=== PATIENT | male | born 1955 | race Caucasian/White ===

== ENCOUNTER 2018-04-08 20:13 | Emergency (ER) | payer OTHER ==
[~2018-04-08] VITALS: Ht 172.7 cm; Wt 78.0 kg
[~2018-04-08 20:13] MED LIST: LOVASTATIN40 MG PO
[2018-04-08] MEDS ORDERED: CEFTRIAXONE SOD 1 GM VIAL IV ONE (21:45)
[2018-04-08 22:09] VITALS: BP 112/61
== END 2018-04-08 22:18 | disposition home or self-care (01) ==
LOC: FSED 20:13
DX: J01.00 Acute maxillary sinusitis, unspecified (principal)
CPT/HCPCS: 80053; 82553; 84484; 85025; 93005; 99283; J0696

== ENCOUNTER 2019-01-31 06:55 | Observation (INO) | payer OTHER ==
[~2019-01-31] VITALS: Ht 172.7 cm; Wt 73.5 kg
[2019-01-31] MEDS ORDERED: SODIUM CHLORIDE 0.9% 1000ML 1,000 ML ONE (07:26)
[2019-01-31] MEDS ORDERED: DIATRIZOATE MEGL/DIATRIZOA SOD 30 ML BTL PO ONE (07:27)
[2019-01-31] MEDS ORDERED: SODIUM CHLORIDE 0.9% 1000ML 1,000 ML IV ONE (07:30)
[2019-01-31] MEDS ORDERED: ONDANSETRON HCL INJ 2MG/ML 2ML 2 MG/ML VIAL IV ONE (08:00)
[2019-01-31 08:03] LABS: BILIRUBIN,URINE NEGATIVE (NEGATIVE); KETONES,URINE TRACE (NEGATIVE); LEUKOCYTE ESTERASE ,URINE NEGATIVE (NEGATIVE); NITRITE,URINE NEGATIVE (NEGATIVE); URINE UROBILINOGEN 0.2 mg/dL (0.2 - 1)
[2019-01-31 08:06] LABS: CLARITY,URINE CLEAR (CLEAR); COLOR,URINE YELLOW (YELLOW); PROTEIN,URINE DIPSTICK 3+ (NEGATIVE)
[2019-01-31 08:09] LABS: BASOPHILS % 0.1 % (0.0-1.0); HEMATOCRIT 50.5 % (38.2-49.6); HEMOGLOBIN 17.6 g/dL (14.0-18.0); LYMPHOCYTES # (AUTO) 1.3 (1.0-3.2); LYMPHOCYTES % 5.9 % (18.0-39.1); MEAN CORPUSCULAR HEMOGLOBIN 32.2 pg (28-32); MEAN CORPUSCULAR HGB CONC 34.9 g/dL (31-35); MEAN CORPUSCULAR VOLUME 92.3 fL (81-99); MONOCYTES # (AUTO) 1.5 (0.2-0.8); MONOCYTES % 6.8 % (4.4-11.3); NEUTROPHILS # (AUTO) 19.2 (2.1-6.9); NEUTROPHILS % 86.6 % (38.7-80.0); PLATELET COUNT 352 x10e3/uL (140-360); RED BLOOD COUNT 5.47 x10e6/uL (4.3-5.7); RED CELL DISTRIBUTION WIDTH 13.2 % (11.7-14.4)
[2019-01-31 08:14] LABS: INR 0.9; PROTHROMBIN TIME 12.6 seconds (11.9-14.5)
[2019-01-31 08:15] LABS: PARTIAL THROMBOPLASTIN TIME 30.4 seconds (23.8-35.5)
[2019-01-31 08:22] LABS: ALANINE AMINOTRANSFERASE 13 IU/L (0-55); ALBUMIN 4.7 g/dL (3.5-5.0); ALBUMIN/GLOBULIN RATIO 1.1 (0.8-2.0); ALKALINE PHOSPHATASE 71 IU/L (40-150); ANION GAP 15.7 mmol/L (8-16); BLOOD UREA NITROGEN 13 mg/dL (7-26); BUN/CREATININE RATIO 13 (6-25); CALCIUM 10.3 mg/dL (8.4-10.2); CARBON DIOXIDE 30 mmol/L (22-29); CHLORIDE 95 mmol/L (98-107); CREATINE KINASE 142 IU/L (30-200); CREATININE, SERUM 0.99 mg/dL (0.72-1.25); EST GLOMERULAR FILTRATION RATE > 60 ML/MIN (60-); GLUCOSE 163 mg/dL (74-118); POTASSIUM 3.7 mmol/L (3.5-5.1); SODIUM 137 mmol/L (136-145)
[2019-01-31 08:23] LABS: AMYLASE 90 U/L (25-125); LIPASE 29 U/L (8-78)
[2019-01-31 08:36] LABS: BACTERIA,URINE RARE /HPF; EPITHELIAL CELLS,URINE FEW /LPF
--- NOTE | 2019-01-31 09:31 | Diagnostic Imaging Report ---
EXAMINATION: CT of the abdomen and pelvis with contrast. TECHNIQUE: Spiral CT images of the abdomen and pelvis were performed from the lung bases to the lesser trochanters after the intravenous administration of 100 cc Isovue-370 and the oral administration of Gastrografin. Coronal and sagittal reformatted images were obtained. COMPARISON: None. CLINICAL HISTORY:Abdominal pain, vomiting DISCUSSION: ABDOMEN/PELVIS: LOWER THORAX:Unremarkable. HEPATOBILIARY: No focal hepatic lesions. No intra-or extrahepatic biliary ductal dilation. The gallbladder is normal. SPLEEN: No splenomegaly. PANCREAS: No focal masses or ductal dilatation. ADRENALS: No adrenal nodules. KIDNEYS/URETERS: No hydronephrosis, stones, or solid mass lesions. PELVIC ORGANS/BLADDER: Urinary bladder is unremarkable. The prostate is enlarged, measuring 5.3 cm transversely, with mass effect on the bladder base. Coarse central calcifications. PERITONEUM/RETROPERITONEUM: No free air or fluid. LYMPH NODES: No pelvic sidewall, retroperitoneal, or mesenteric lymphadenopathy. VESSELS: Abdominal aorta, major branch vessels, and iliac arterial systems are patent with mild atherosclerotic calcification. No aneurysmal dilatation area hepatic arterial anatomy appears conventional. Single right renal artery and 2 left renal arteries. Portal vein, splenic vein, and central superior mesenteric vein are patent. GI TRACT: The large bowel shows no distention or wall thickening. There are a few diverticula scattered along the course of the descending and sigmoid colon, without evidence of diverticulitis. The appendix is normal. There is no small bowel dilatation to suggest obstruction. Small duodenal diverticulum incidentally noted. BONES AND SOFT TISSUE: No osseous destructive lesions. Degenerative disc changes and facet arthropathy of the lower lumbar spine. No focal soft tissue abnormalities. IMPRESSION: No acute intra-abdominal or pelvic CT abnormalities. Large bowel diverticulosis without findings of diverticulitis. Mild atherosclerotic vascular disease. Prostatomegaly. Signed by: Dr. Guillermo Pino M.D. on 01/31/2019 9:27 AM
[2019-01-31] MEDS ORDERED: SODIUM CHLORIDE 0.9% 1000ML 1,000 ML IV SCH (10:42)
[2019-01-31] MEDS ORDERED: PROMETHAZINE HCL (IM) 25 MG/ML VIAL IV PRN (10:45)
--- OUTSIDE RECORDS SUMMARY | 2019-01-31 11:06 | XMS REPORT ---
Author Author [facility] Address Unknown Phone Unavailable Care Team Providers Care Gymnastic Coach Name Role Phone Ced PONCE Unavailable Unavailable Problems This patient has no known problems. Allergies, Adverse Reactions, Alerts This patient has no known allergies or adverse reactions. Medications This patient has no known medications. Results Test Description Test Time Test Comments Text Results Atomic Results Result Comments CT ABDOMEN/PELVIS W 2019-01-31 09:16:00 [facility] [address] [id number] Patient Name: CHELE AVILES III MR #: [id number] : 1955 Age/Sex: 63/M Req #: [id number] Adm Physician: Ordered by: JEANCARLOS ZAIDI MD Report #: [id number] Location: ER Room/Bed: Procedure: [id number] CT/CT ABDOMEN/PELVIS W Exam Date: 01/31/19 Exam Time: 0850 REPORT STATUS: Signed EXAMINATION: CT of the abdomen and pelvis with contrast. TECHNIQUE: Spiral CT images of the abdomen and pelvis were performed from the lung bases to the lesser trochanters after the intravenous administration of 100 cc Isovue-370 and the oral administration of Gastrografin. Coronal and sagittal reformatted images were obtained. COMPARISON: None. CLINICAL HISTORY:Abdominal pain, vomiting DISCUSSION: ABDOMEN/PELVIS: LOWER THORAX:Unremarkable. HEPATOBILIARY: No focal hepatic lesions. No intra-or extrahepatic biliary ductal dilation. The gallbladder is normal. SPLEEN: No splenomegaly. PANCREAS: No focal masses or ductal dilatation. ADRENALS: No adrenal nodules. KIDNEYS/URETERS: No hydronephrosis, stones, or solid mass lesions. PELVIC ORGANS/BLADDER: Urinary bladder is unremarkable. The prostate is enlarged, measuring 5.3 cm transversely, with mass effect on the bladder base. Coarse central calcifications. PERITONEUM/RETROPERITONEUM: No free air or fluid. LYMPH NODES: No pelvic sidewall, retroperitoneal, or mesenteric lymphadenopathy. VESSELS: Abdominal aorta, major branch vessels, and iliac arterial systems are patent with mild atherosclerotic calcification. No aneurysmal dilatation area hepatic arterial anatomy appears conventional. Single right renal artery and 2 left renal arteries. Portal vein, splenic vein, and central superior mesenteric vein are patent. GI TRACT: The large bowel shows no distention or wall thickening. There are a few diverticula scattered along the course of the descending and sigmoid colon, without evidence of diverticulitis. The appendix is normal. There is no small bowel dilatation to suggest obstruction. Small duodenal diverticulum incidentally noted. BONES AND SOFT TISSUE: No osseous destructive lesions. Degenerative disc changes and facet arthropathy of the lower lumbar spine. No focal soft tissue abnormalities. IMPRESSION: No acute intra- abdominal or pelvic CT abnormalities. Large bowel diverticulosis without findings of diverticulitis. Mild atherosclerotic vascular disease. Prostatomegaly. Signed by: Dr. Molly Baron M.D. on 01/31/2019 9:27 AM Dictated By: MOLLY BARON MD 6 Transcribed By: TRISTAN on 01/31/19926 COPY TO: JEANCARLOS ZAIDI MD
[2019-01-31 12:16] VITALS: BP 186/100
--- NOTE | 2019-01-31 12:30 | NUR ---
pt arrived to unit resp even and unlabored at this time no distress noted pt alert and able to make needs known, no nausea at this time, pt orient to room and call light, bed in lowest portion, bed rails up x2, pt instructed to use call light.
--- NOTE | 2019-01-31 14:05 | NUR ---
Visit made by the Spiritual Care Department Pastoral Visitor, Kaelyn Prajapati. PV provided pastoral presence, prayer, hospitality, and supportive listening. Pastoral Visitor informed pt/family of the scope of [employer] and availability. GREGORY NEGRON [employer] Spiritual Care Department O: [phone] Pager: [phone] ([phone] number calling from)
[2019-01-31] MEDS: ONDANSETRON HCL INJ 2MG/ML 2ML 2 MG/ML VIAL IV PRN ×2 (15:59→21:23)
[2019-01-31 16:02] VITALS: BP 186/96
[2019-01-31] MEDS ORDERED: IOPAMIDOL 370 MG/ML 200 ML INFUS..BTL INJ ONE (16:24)
[2019-01-31] MEDS ORDERED: SODIUM CHLORIDE 0.9% 50ML 50 ML ONE (16:24)
[2019-01-31] MEDS ORDERED: CLONIDINE HCL 0.1 MG TAB PO ONE (19:00)
--- NOTE | 2019-01-31 19:40 | NUR ---
report given to oncoming nurse for continued care
[2019-01-31 20:00] VITALS: BP 149/101
[2019-01-31 21:00] VITALS: BP 145/100
[2019-02-01] VITALS (7 sets, daily range): BP systolic 105–176; BP diastolic 74–103
[2019-02-01] MEDS: ZOLPIDEM TARTRATE 10 MG TAB PO PRN ×2 (02:47→23:39)
[2019-02-01] MEDS: CLONIDINE HCL 0.1 MG TAB PO PRN ×3 (05:00→23:39)
[2019-02-01] MEDS ORDERED: SODIUM CHLORIDE 0.9% 1000ML 1,000 ML ONE (05:44)
[2019-02-01 05:50] LABS: BASOPHILS % 0.1 % (0.0-1.0); EOSINOPHILS # (AUTO) 0.1 (0.0-0.4); EOSINOPHILS % 0.2 % (0.0-6.0); HEMATOCRIT 48.5 % (38.2-49.6); HEMOGLOBIN 16.6 g/dL (14.0-18.0); LYMPHOCYTES # (AUTO) 2.2 (1.0-3.2); MEAN CORPUSCULAR HEMOGLOBIN 31.9 pg (28-32); MEAN CORPUSCULAR HGB CONC 34.2 g/dL (31-35); MEAN CORPUSCULAR VOLUME 93.1 fL (81-99); MONOCYTES # (AUTO) 1.6 (0.2-0.8); MONOCYTES % 7.9 % (4.4-11.3); NEUTROPHILS # (AUTO) 16.1 (2.1-6.9); NEUTROPHILS % 80.3 % (38.7-80.0); PLATELET COUNT 326 x10e3/uL (140-360); RED BLOOD COUNT 5.21 x10e6/uL (4.3-5.7); RED CELL DISTRIBUTION WIDTH 13.1 % (11.7-14.4)
[2019-02-01 06:10] LABS: ALANINE AMINOTRANSFERASE 14 IU/L (0-55); ALBUMIN 4.1 g/dL (3.5-5.0); ALBUMIN/GLOBULIN RATIO 1.1 (0.8-2.0); ALKALINE PHOSPHATASE 71 IU/L (40-150); ANION GAP 14.9 mmol/L (8-16); BLOOD UREA NITROGEN 15 mg/dL (7-26); BUN/CREATININE RATIO 17 (6-25); CALCIUM 9.7 mg/dL (8.4-10.2); CARBON DIOXIDE 28 mmol/L (22-29); CHLORIDE 97 mmol/L (98-107); CREATININE, SERUM 0.89 mg/dL (0.72-1.25); EST GLOMERULAR FILTRATION RATE > 60 ML/MIN (60-); GLUCOSE 126 mg/dL (74-118); MAGNESIUM 2.3 MG/DL (1.3-2.1); POTASSIUM 3.9 mmol/L (3.5-5.1); SODIUM 136 mmol/L (136-145)
[2019-02-01] MEDS: SODIUM CHLORIDE 0.9% 1000ML 1,000 ML IV SCH ×2 (06:50→16:57)
--- NOTE | 2019-02-01 07:19 | NUR ---
patient endorsed to next shift for continuity of care
--- NOTE | 2019-02-01 19:30 | NUR ---
Received patient from day nurse, patient stable, safety and fall precautions maintained as per hospital protocol.
[2019-02-01] MEDS: ONDANSETRON HCL INJ 2MG/ML 2ML 2 MG/ML VIAL IV PRN (23:39)
[2019-02-02] VITALS: BP 170/94
[2019-02-02] MEDS: SODIUM CHLORIDE 0.9% 1000ML 1,000 ML IV SCH (02:45)
[2019-02-02 04:20] VITALS: BP 168/78
[2019-02-02 05:56] LABS: BASOPHILS % 0.2 % (0.0-1.0); EOSINOPHILS # (AUTO) 0.1 (0.0-0.4); EOSINOPHILS % 0.4 % (0.0-6.0); HEMATOCRIT 45.9 % (38.2-49.6); HEMOGLOBIN 15.6 g/dL (14.0-18.0); LYMPHOCYTES # (AUTO) 2.5 (1.0-3.2); LYMPHOCYTES % 17.2 % (18.0-39.1); MEAN CORPUSCULAR HEMOGLOBIN 31.7 pg (28-32); MEAN CORPUSCULAR VOLUME 93.3 fL (81-99); MONOCYTES # (AUTO) 1.4 (0.2-0.8); MONOCYTES % 9.3 % (4.4-11.3); NEUTROPHILS # (AUTO) 10.7 (2.1-6.9); NEUTROPHILS % 72.6 % (38.7-80.0); PLATELET COUNT 267 x10e3/uL (140-360); RED BLOOD COUNT 4.92 x10e6/uL (4.3-5.7); RED CELL DISTRIBUTION WIDTH 12.8 % (11.7-14.4)
--- NOTE | 2019-02-02 06:01 | NUR ---
Received patient from day nurse, patient stable, safety and fall precautions maintained as per hospital protocol.
--- NOTE | 2019-02-02 07:06 | NUR ---
patient endorsed to next shift for continuity of care.
[2019-02-02 07:52] VITALS: BP 154/81
[2019-02-02 10:08] VITALS: BP 154/81
[2019-02-02 11:38] VITALS: BP 153/85
[2019-02-02] MEDS ORDERED: ZOFRAN4 MG PO (12:56)
--- NOTE | 2019-02-03 06:11 | Discharge Summary ---
DISCHARGE DIAGNOSES: 1. Gastroenteritis. 2. Leukocytosis. 3. Hypertension. 4. Hyperlipidemia. 5. Dehydration. HISTORY OF PRESENT ILLNESS AND HOSPITAL COURSE: See hospital chart for full details. The patient is a gentleman, who presented with a 2-day history of nausea, vomiting. No diarrhea. No fever where he was very intractable. He was unable to keep p.o. intake down. When he came in, he had evidence of dehydration on his laboratory data. He was given IV fluids, antiemetics as well as p.r.n. blood pressure medicines for his elevated blood pressure, which he does not have a history of. Over the next day and a half, the patient had significant improvement. His dehydration labs were back to normal. His white count was trending downward from 22,000 to 14,000. He was able to ambulate and eat well with no further nausea, vomiting. Blood pressure improved where his blood pressure on discharge was 153/85. He felt great, he wanted to go home. Abdominal CT scan was unremarkable except for enlarged prostate and some diverticulosis, but no diverticulitis. The patient was instructed to follow up with me in 1 to 2 weeks. He was discharged home with some p.r.n. Chinyere. MD CURT Choudhury/MARQUEZ /[id number]
== END 2019-02-02 13:37 | disposition home or self-care (01) ==
LOC: ER 06:55 → ERHOLD 11:02 → IMCU 11:17
PROVIDERS: ADMIT Internal Medicine; ATTEND Internal Medicine
DX: E86.0 Dehydration (principal); K52.9 Noninfective gastroenteritis and colitis, unspecified; D72.829 Elevated white blood cell count, unspecified; I10 Essential (primary) hypertension; E78.5 Hyperlipidemia, unspecified; E78.00 Pure hypercholesterolemia, unspecified
CPT/HCPCS: 36415 ×3; 74177; 80053 ×2; 81001; 82150; 82550; 82553; 83690; 83735; 84484; 85025 ×3; 85610; 85730; 93005; 96361; 99284; G0378 ×3; J2405 ×2; J7030 ×3; Q9967; 96360